=== PATIENT | female | born 1955 | race Caucasian/White ===

== ENCOUNTER 2021-05-08 10:35 | Emergency (ER) | payer BC, OTHER ==
[~2021-05-08 10:35] MED LIST: ALPR-624 PO; ATOR40TA PO; DOCU100C41 PO; DULO-31 PO; LOSA50TA3 PO; METO50TA7 PO; PANT40TA54 PO; TRAZ-251 PO
== END 2021-05-08 12:04 | disposition left against medical advice (07) ==
LOC: ER 10:35
DX: T14.8XXA Other injury of unspecified body region, initial encounter (principal); Z53.21 Procedure and treatment not carried out due to patient leaving prior to being seen by health care provider; X58.XXXA Exposure to other specified factors, initial encounter; Y93.9 Activity, unspecified; Y92.9 Unspecified place or not applicable; Y99.9 Unspecified external cause status

== ENCOUNTER 2023-05-02 01:14 | Emergency (ER) | payer MEDICARE ==
[~2023-05-02] VITALS: Ht 160 cm; Wt 81.2 kg
[~2023-05-02 01:14] MED LIST changes: +LOSA-416 PO; -LOSA50TA3 PO
[2023-05-02] MEDS ORDERED: ondansetron 4mg rapidly disintigrating tab PO ONE (03:25)
[2023-05-02] MEDS ORDERED: traMADol 50MG tablet PO ONE (03:25)
[2023-05-02] MEDS ORDERED: LIDOcaine Viscous 15ml cup MM ONE (03:25)
[2023-05-02] MEDS ORDERED: LORazepam 1 MG tablet PO ONE (03:25)
--- NOTE | 2023-05-02 03:50 | NUR ---
PT DIRECTED NOT TO DRIVE SECONDARY TO MEDICATIONS GIVEN, SHE VERBALIZES AGREEMENT AND UNDERSTANDING. WE WILL CALL A CAB FOR HER WHEN SHE IS DISCHARGED SHE HAS NO RIDE HOME
[2023-05-02] MEDS ORDERED: ACET-2615 PO (04:07)
[2023-05-02] MEDS ORDERED: LIDO1ADH3 TOP (04:07)
[2023-05-02] MEDS ORDERED: GABA100C PO (04:07)
[2023-05-02] MEDS ORDERED: NAPR-56 PO (04:07)
[2023-05-02 04:12] VITALS: BP 168/111; PULSE 105; RESP 16; TEMP 98.6; O2SAT 96
== END 2023-05-02 04:14 | disposition home or self-care (01) ==
LOC: ER 01:14
DX: M79.601 Pain in right arm (principal); G89.29 Other chronic pain; M54.9 Dorsalgia, unspecified; F31.9 Bipolar disorder, unspecified; Z86.2 Personal history of diseases of the blood and blood-forming organs and certain disorders involving the immune mechanism; Z79.899 Other long term (current) drug therapy
CPT/HCPCS: 73130; 99284